=== PATIENT | female | born 1990 | race African-American/Black ===

== ENCOUNTER 2018-08-20 13:57 | Emergency (ER) | payer MEDICAID ==
[~2018-08-20] VITALS: Ht 160 cm; Wt 53.1 kg
[2018-08-20 15:25] VITALS: BP 155/99
== END 2018-08-20 16:23 | disposition home or self-care (01) ==
LOC: ER 14:05
DX: B35.4 Tinea corporis (principal); I10 Essential (primary) hypertension

== ENCOUNTER 2019-10-01 11:18 | Emergency (ER) | payer MEDICAID ==
[~2019-10-01] VITALS: Ht 157.5 cm; Wt 53.5 kg
[2019-10-01 12:35] LABS: Basophils # (auto) 0 10 ^3/uL (0-0.2); Basophils % (auto) 0.9 % (0.0-2.0); Eosinophils # (auto) 0 10 ^3/uL (0-0.8); Eosinophils % (auto) 1.1 % (0.0-7.0); Hematocrit 40.9 % (36.0-46.0); Hemoglobin 13.4 g/dL (12.2-16.2); Lymphocytes # (auto) 1.4 10 ^3/uL (0.4-5.4); Lymphocytes % (auto) 50.2 % (10.0-50.0); Mean Corpuscular Hemoglobin 31.3 pg (28.0-32.0); Mean Corpuscular Hgb Conc. 32.8 g/dL (32.0-36.0); Mean Corpuscular Volume 95.4 fL (80.0-100.0); Monocytes # (auto) 0.3 10 ^3/uL (0-1.3); Monocytes % (auto) 10.7 % (0.0-12.0); Neutrophils % (auto) 37.1 % (37.0-80.0); Nucleated Red Blood Cells % 0.1 %; Platelet Count (auto) 228 10^3/uL (140-450); Red Blood Cells 4.29 10^6/uL (4.0-5.20); Red Cell Distribution Width 13.4 % (11.8-14.3); White Blood Cell 2.8 10^3/uL (4.4-10.8)
[2019-10-01 13:50] VITALS: BP 153/93
== END 2019-10-01 13:53 | disposition home or self-care (01) ==
LOC: ER 11:18
DX: N93.9 Abnormal uterine and vaginal bleeding, unspecified (principal)
CPT/HCPCS: 36415; 84702; 85025

== ENCOUNTER 2020-08-01 18:29 | Inpatient (IN) | payer MEDICAID ==
[~2020-08-01] VITALS: Ht 165.1 cm; Wt 54.6 kg
[2020-08-01 19:12] LABS: Hematocrit 39.5 % (36.0-46.0); Hemoglobin 13.9 g/dL (12.2-16.2); Mean Corpuscular Hemoglobin 31.7 pg (28.0-32.0); Mean Corpuscular Hgb Conc. 35.1 g/dL (32.0-36.0); Mean Corpuscular Volume 90.2 fL (80.0-100.0); Red Blood Cells 4.38 10^6/uL (4.0-5.20); Red Cell Distribution Width 14.5 % (11.8-14.3); White Blood Cell 4.4 10^3/uL (4.4-10.8)
[2020-08-01 19:27] LABS: Basophils % (manual) 0 (0.0-2.0); Blast Cells 0; Eosinophils % (manual) 0 (0-7); Metamyelocytes % 0; Myelocytes % 0; Promyelocytes % 0; Reactive Lymphocytes 0
[2020-08-01 19:28] LABS: Albumin 4.5 g/dL (3.4-5.0); Anion Gap 7 (5-15); Blood Urea Nitrogen 9 mg/dL (7-18); Carbon Dioxide 28 mmol/L (21-32); Chloride 105 mmol/L (98-107); Glucose 100 mg/dL (74-106); Magnesium 2.1 mg/dL (1.6-2.6); Potassium 3.5 mmol/L (3.5-5.1); Sodium 140 mmol/L (136-145)
[2020-08-01 19:38] LABS: Alanine Aminotransferase 19 U/L (13-56); Alkaline Phosphatase 71 U/L (45-117); Aspartate Aminotransferase 15 U/L (15-37); BUN/Creatinine Ratio 11.8; Bilirubin, Total 0.5 mg/dL (0.2-1.0); GFR African American 115 mL/min; GFR Non-African American 95 mL/min; Total Protein 8.5 g/dL (6.4-8.2)
[2020-08-01 20:28] LABS: Urine Bacteria FEW /hpf (None Seen); Urine Blood Negative /uL (Negative); Urine Specific Gravity 1.004 (1.001-1.035); Urine WBC 3 /hpf (0 - 5)
[2020-08-01 20:34] LABS: Band Neutrophils % (manual) 2; Lymphocytes % (manual) 13 (10.0-50.0); Monocytes % (manual) 20 (0-12)
[2020-08-01] MEDS ORDERED: cloNIDine HCL 0.1 MG TAB PO ONE (20:45)
[2020-08-01] MEDS ORDERED: HYDROcodone-ACET 5/325MG TAB PO PRN (22:45)
[2020-08-01] MEDS ORDERED: MORPHINE SULFATE INJECTION 2 MG/ML SYRG IV PRN (22:45)
[2020-08-01] MEDS ORDERED: ONDANSETRON HCL 4 MG/2 ML VIAL IV PRN (22:45)
[2020-08-01] MEDS ORDERED: hydrALAZINE HCL 20 MG/ML VL IV PRN (22:45)
[2020-08-01] MEDS ORDERED: ACETAMINOPHEN 325 MG TAB PO PRN (22:45)
[2020-08-01] MEDS ORDERED: NITROGLYCERIN 0.4 MG SL TAB SL PRN (22:45)
[2020-08-01] MEDS ORDERED: DOCUSATE SOD 100 MG CAP PO PRN (22:45)
[2020-08-01 23:32] VITALS: BP 142/91
[2020-08-02] VITALS (8 sets, daily range): BP systolic 112–145; BP diastolic 77–95
[2020-08-02] MEDS ORDERED: AML5T PO (02:15)
[2020-08-02] MEDS ORDERED: HYDR25TA5 GT (02:16)
[2020-08-02] MEDS: SODIUM CHLOR 0.9% PF (SALINE LOCK) 10ML VIAL/SYR IV SCH ×3 (05:10→21:52)
[2020-08-02 05:50] LABS: Hematocrit 36.8 % (36.0-46.0); Hemoglobin 12.3 g/dL (12.2-16.2); Mean Corpuscular Hemoglobin 30.3 pg (28.0-32.0); Mean Corpuscular Hgb Conc. 33.5 g/dL (32.0-36.0); Mean Corpuscular Volume 90.4 fL (80.0-100.0); Red Blood Cells 4.07 10^6/uL (4.0-5.20); Red Cell Distribution Width 14.2 % (11.8-14.3); White Blood Cell 2.8 10^3/uL (4.4-10.8)
[2020-08-02] MEDS ORDERED: ALBUTEROL SULF HFA 90MCG INH 200DOSE IN SCH (06:00)
[2020-08-02] MEDS ORDERED: ALBUTEROL SULF HFA 90MCG INH 200DOSE IN PRN (06:00)
[2020-08-02 06:04] LABS: Albumin 3.9 g/dL (3.4-5.0); Calcium 8.4 mg/dL (8.5-10.1); Potassium 3.8 mmol/L (3.5-5.1)
[2020-08-02 06:08] LABS: Bilirubin, Total 0.6 mg/dL (0.2-1.0); Total Protein 7.4 g/dL (6.4-8.2)
[2020-08-02 07:01] LABS: Basophils % (manual) 0 (0.0-2.0); Blast Cells 0; Eosinophils % (manual) 0 (0-7); Metamyelocytes % 0; Myelocytes % 0; Promyelocytes % 0; Reactive Lymphocytes 0
[2020-08-02 10:00] LABS: Band Neutrophils % (manual) 3; Lymphocytes % (manual) 38 (10.0-50.0)
[2020-08-02 10:01] LABS: Monocytes % (manual) 30 (0-12)
[2020-08-02] MEDS: MULTIPLE VITAMIN TAB PO SCH (10:08)
[2020-08-02] MEDS: ZINC SULFATE 220mg CAP or TAB PO SCH (10:08)
[2020-08-02] MEDS: METOPROLOL TARTRATE 50 MG TAB PO SCH ×2 (10:08→21:52)
[2020-08-02] MEDS: CHOLECALCIFEROL (VITD3) 1,000UNIT=25mCg TAB PO SCH (10:09)
[2020-08-02] MEDS: FAMOTIDINE 20 MG TAB PO SCH ×2 (10:09→21:52)
[2020-08-02] MEDS: ENOXAPARIN SOD 40 MG/0.4 ML SYRINGE SC SCH (10:09)
[2020-08-02] MEDS: ASCORBIC ACID 500 MG TAB PO SCH ×2 (10:09→21:53)
[2020-08-02] MEDS: AZITHROMYCIN 500MG/ 250ML 250 ML IV SCH (14:20)
[2020-08-02] MEDS ORDERED: guaiFENesin-DM 100/10mg/5ml SYR PO PRN (20:30)
[2020-08-02] MEDS: NITROFURANTOIN 100 mg CAP PO SCH (21:52)
[2020-08-03 05:00] VITALS: BP 120/79
[2020-08-03] MEDS: SODIUM CHLOR 0.9% PF (SALINE LOCK) 10ML VIAL/SYR IV SCH ×2 (05:39→14:35)
[2020-08-03 08:00] VITALS: BP 135/92
[2020-08-03 09:00] VITALS: BP 135/92
[2020-08-03] MEDS ORDERED: amLODIPine BESYLATE 5 MG TAB PO SCH (10:00)
[2020-08-03] MEDS: ENOXAPARIN SOD 40 MG/0.4 ML SYRINGE SC SCH (10:00)
[2020-08-03] MEDS: AZITHROMYCIN 500MG/ 250ML 250 ML IV SCH (10:03)
[2020-08-03] MEDS: MULTIPLE VITAMIN TAB PO SCH (10:04)
[2020-08-03] MEDS: NITROFURANTOIN 100 mg CAP PO SCH (10:04)
[2020-08-03] MEDS: ZINC SULFATE 220mg CAP or TAB PO SCH (10:04)
[2020-08-03] MEDS: CHOLECALCIFEROL (VITD3) 1,000UNIT=25mCg TAB PO SCH (10:05)
[2020-08-03] MEDS: FAMOTIDINE 20 MG TAB PO SCH (10:05)
[2020-08-03] MEDS: ASCORBIC ACID 500 MG TAB PO SCH (10:05)
[2020-08-03] MEDS: METOPROLOL TARTRATE 50 MG TAB PO SCH (10:06)
[2020-08-03 13:00] VITALS: BP 121/75
[2020-08-03 17:00] VITALS: BP 122/76
[2020-08-03 17:36] VITALS: BP 122/76
== END 2020-08-03 18:05 | disposition home or self-care (01) | DRG 137 ==
LOC: ER 18:29 → TELE-EAST 22:53
PROVIDERS: ADMIT Nurse Practitioner Family; ATTEND Nurse Practitioner Family
DX: U07.1 COVID-19 (principal); J12.82 Pneumonia due to coronavirus disease 2019; I10 Essential (primary) hypertension; N39.0 Urinary tract infection, site not specified; Z82.49 Family history of ischemic heart disease and other diseases of the circulatory system; Z83.3 Family history of diabetes mellitus; E78.5 Hyperlipidemia, unspecified
CPT/HCPCS: 36415; 71045; 80053; 81001; 83735; 84443; 84484; 85007; 85027; 85379; 86141; 87426; 93005; 96365; 96372; 96375; G0378

== ENCOUNTER → 2022-03-17 09:59 | Emergency (ER) | payer MEDICAID ==
[~2022-03-17] VITALS: Ht 160 cm; Wt 55.4 kg
[~2022-03-17 09:59] MED LIST: AML5T PO; HYDR25TA5 GT; SODIUM CHLORIDE 0.9% 1,000 ML IV ONE; SODIUM CHLORIDE 0.9% 500 ML IVB ONE
[2022-03-17 11:32] LABS: Basophils # (auto) 0 10 ^3/uL (0-0.2); Basophils % (auto) 0.4 % (0.0-2.0); Eosinophils # (auto) 0 10 ^3/uL (0-0.8); Eosinophils % (auto) 0.1 % (0.0-7.0); Hematocrit 40.7 % (36.0-46.0); Hemoglobin 13.4 g/dL (12.2-16.2); Lymphocytes # (auto) 1.5 10 ^3/uL (0.4-5.4); Mean Corpuscular Hemoglobin 28.7 pg (28.0-32.0); Mean Corpuscular Volume 86.9 fL (80.0-100.0); Monocytes # (auto) 0.5 10 ^3/uL (0-1.3); Monocytes % (auto) 8.3 % (0.0-12.0); Neutrophils # (auto) 3.7 10 ^3/uL (1.6-8.6); Neutrophils % (auto) 64.2 % (37.0-80.0); Red Blood Cells 4.68 10^6/uL (4.0-5.20); Red Cell Distribution Width 14.9 % (11.8-14.3); White Blood Cell 5.7 10^3/uL (4.4-10.8)
[2022-03-17 11:46] LABS: Albumin 4.8 g/dL (3.4-5.0); Calcium 9.2 mg/dL (8.5-10.1); Potassium 3.7 mmol/L (3.5-5.1)
[2022-03-17 11:50] LABS: BUN/Creatinine Ratio 6.8; Bilirubin, Total 1.4 mg/dL (0.2-1.0); Total Protein 8.6 g/dL (6.4-8.2)
[2022-03-17 13:29] LABS: Urine Bacteria NONE SEEN /hpf (None Seen); Urine Blood Negative /uL (Negative); Urine Mucus FEW (None Seen); Urine Specific Gravity 1.014 (1.001-1.035); Urine WBC 1 /hpf (0 - 5)
[2022-03-17 16:03] VITALS: BP 152/80
== END | disposition home or self-care (01) ==
LOC: ER 09:59
DX: O00.90 Unspecified ectopic pregnancy without intrauterine pregnancy (principal); I10 Essential (primary) hypertension; Z79.899 Other long term (current) drug therapy; Z3A.00 Weeks of gestation of pregnancy not specified
CPT/HCPCS: 36415; 76801; 76817; 80053; 81001; 81025; 83735; 84702; 85025; 96360; 96361; 99284; J7030; J7040

== ENCOUNTER 2022-03-19 09:43 | Emergency (ER) | payer MEDICAID ==
[~2022-03-19] VITALS: Ht 160 cm; Wt 56.4 kg
[~2022-03-19 09:43] MED LIST changes: -SODIUM CHLORIDE 0.9% 1,000 ML IV ONE; -SODIUM CHLORIDE 0.9% 500 ML IVB ONE
[2022-03-19 11:41] VITALS: BP 140/91
== END 2022-03-19 12:20 | disposition home or self-care (01) ==
LOC: ER 09:43
DX: O02.81 Inappropriate change in quantitative human chorionic gonadotropin (hCG) in early pregnancy (principal); Z3A.01 Less than 8 weeks gestation of pregnancy
CPT/HCPCS: 36415; 84702

== ENCOUNTER 2022-03-21 07:46 | Emergency (ER) | payer MEDICAID ==
[~2022-03-21] VITALS: Ht 157.5 cm; Wt 54.0 kg
[2022-03-21 08:25] VITALS: BP 149/81
== END 2022-03-21 10:29 | disposition home or self-care (01) ==
LOC: ER 07:46
DX: O26.891 Other specified pregnancy related conditions, first trimester (principal); O16.1 Unspecified maternal hypertension, first trimester; Z3A.01 Less than 8 weeks gestation of pregnancy
CPT/HCPCS: 36415; 84702

== ENCOUNTER 2023-04-01 21:32 | Emergency (ER) | payer MEDICAID ==
[~2023-04-01] VITALS: Ht 160 cm; Wt 69.0 kg
[2023-04-01] MEDS ORDERED: hydroCHLOROthiazide 25 MG TAB PO ONE (22:30)
[2023-04-01] MEDS ORDERED: amLODIPine BESYLATE 5 MG TAB PO ONE (22:30)
[2023-04-01 22:50] LABS: Basophils # (auto) 0 10 ^3/uL (0-0.2); Eosinophils # (auto) 0 10 ^3/uL (0-0.8); Eosinophils % (auto) 0.5 % (0.0-7.0); Hematocrit 37.7 % (36.0-46.0); Hemoglobin 12.2 g/dL (12.2-16.2); Lymphocytes # (auto) 1.4 10 ^3/uL (0.4-5.4); Lymphocytes % (auto) 31.7 % (10.0-50.0); Mean Corpuscular Hemoglobin 27.8 pg (28.0-32.0); Mean Corpuscular Hgb Conc. 32.3 g/dL (32.0-36.0); Monocytes # (auto) 0.5 10 ^3/uL (0-1.3); Monocytes % (auto) 10.5 % (0.0-12.0); Neutrophils # (auto) 2.6 10 ^3/uL (1.6-8.6); Neutrophils % (auto) 56.3 % (37.0-80.0); Red Blood Cells 4.39 10^6/uL (4.0-5.20); Red Cell Distribution Width 15.6 % (11.8-14.3); White Blood Cell 4.5 10^3/uL (4.4-10.8)
[2023-04-01 23:00] LABS: Alkaline Phosphatase 85 U/L (46-116); Anion Gap 6 (5-15); Aspartate Aminotransferase 13 U/L (13-40); BUN/Creatinine Ratio 8.3 (10.0-20.0); Bilirubin, Total 1.1 mg/dL (0.2-1.0); Blood Urea Nitrogen 8 mg/dL (9-23); Calcium 9.2 mg/dL (8.7-10.4); Carbon Dioxide 25 mmol/L (20-30); Chloride 107 mmol/L (98-107); Glucose 99 mg/dL (74-106); Potassium 4.2 mmol/L (3.5-5.1); Sodium 138 mmol/L (136-145); Total Protein 7.8 g/dL (5.7-8.2)
[2023-04-01 23:01] LABS: INR 1.01 (0.9-1.15); Prothrombin Time 10.6 sec (9.3-11.8)
[2023-04-01 23:05] LABS: Urine Bacteria NONE SEEN /hpf (None Seen); Urine Blood Negative /uL (Negative); Urine Clarity HAZY (Clear); Urine Color Yellow (Yellow); Urine Mucus FEW (None Seen); Urine Protein, UAD TRACE (Negative); Urine Specific Gravity 1.027 (1.001-1.035); Urine Urobilinogen Normal (Negative); Urine WBC 3 /hpf (0 - 5)
[2023-04-01 23:09] LABS: Alanine Aminotransferase < 9 U/L (7-40)
[2023-04-01] MEDS ORDERED: LORazepam 0.5 MG TAB PO ONE (23:30)
[2023-04-01] MEDS ORDERED: ONDANSETRON ODT 4 MG TAB PO ONE (23:30)
[2023-04-01 23:43] LABS: Blood Alcohol < 3.0 mg/dL (<10)
[2023-04-01 23:48] LABS: Amphetamine Screen, Urine Neg (NEGATIVE); Barbiturate Scree,Urine Neg (NEGATIVE); Benzodiazephine Screen, Urine Neg (NEGATIVE); Cannabinoid Screen, Urine Neg (NEGATIVE); Cocaine Screen, Urine Neg (NEGATIVE); Opiate Scree,Urine Neg (NEGATIVE); Phencyclidine Screen, Urine Neg (NEGATIVE)
[2023-04-02] MEDS ORDERED: hydrALAZINE HCL 25 MG TAB PO ONE (01:00)
[2023-04-02] MEDS ORDERED: hydroCHLOROthiazide 25 MG TAB PO ONE (01:00)
[2023-04-02] MEDS ORDERED: LABETALOL HCL 5 MG/ML 4ML SYRINGE IV ONE (04:30)
[2023-04-02] MEDS ORDERED: hydrALAZINE HCL 20 MG/ML VL IV ONE (04:30)
[2023-04-02] MEDS ORDERED: cloNIDine HCL 0.1 MG TAB PO ONE (06:15)
[2023-04-02] MEDS ORDERED: POTA1TAB4 PO (06:20)
[2023-04-02] MEDS ORDERED: [UNRECOGNIZED DRUG - CODE] PO (06:20)
[2023-04-02] MEDS ORDERED: AMLO1TAB23 PO (06:20)
[2023-04-02 07:20] VITALS: PULSE 99; RESP 13; O2SAT 99
[2023-04-02] MEDS ORDERED: ACETAMINOPHEN 500 MG TAB PO ONE (08:30)
[2023-04-02 09:32] VITALS: BP 126/75; PULSE 97; RESP 16; TEMP 98.3; O2SAT 100
== END 2023-04-02 09:55 | disposition home or self-care (01) ==
LOC: ER 21:32
DX: I10 Essential (primary) hypertension (principal); F41.9 Anxiety disorder, unspecified; Z79.899 Other long term (current) drug therapy
CPT/HCPCS: 36415; 71045; 80053; 80307; 80320; 81001; 83735; 84484; 85025; 85379; 85610; 85730; 93005; 96374; 99285; J0360

== ENCOUNTER 2023-06-06 18:49 | Emergency (ER) | payer MEDICAID ==
[~2023-06-06] VITALS: Ht 160 cm; Wt 66.0 kg
[~2023-06-06 18:49] MED LIST changes: +AMLO1TAB23 PO; +POTA1TAB4 PO; +[UNRECOGNIZED DRUG - CODE] PO
[2023-06-06 20:05] LABS: Basophils # (auto) 0.1 10 ^3/uL (0-0.2); Basophils % (auto) 0.9 % (0.0-2.0); Eosinophils # (auto) 0 10 ^3/uL (0-0.8); Eosinophils % (auto) 0.3 % (0.0-7.0); Hematocrit 39.1 % (36.0-46.0); Hemoglobin 12.8 g/dL (12.2-16.2); Lymphocytes # (auto) 1.8 10 ^3/uL (0.4-5.4); Lymphocytes % (auto) 32.7 % (10.0-50.0); Mean Corpuscular Hemoglobin 28.3 pg (28.0-32.0); Mean Corpuscular Hgb Conc. 32.7 g/dL (32.0-36.0); Mean Corpuscular Volume 86.5 fL (80.0-100.0); Monocytes # (auto) 0.6 10 ^3/uL (0-1.3); Monocytes % (auto) 11.4 % (0.0-12.0); Neutrophils % (auto) 54.7 % (37.0-80.0); Nucleated Red Blood Cells % 0.1 %; Red Blood Cells 4.52 10^6/uL (4.0-5.20); Red Cell Distribution Width 17.3 % (11.8-14.3); White Blood Cell 5.5 10^3/uL (4.4-10.8)
[2023-06-06 20:16] LABS: Chloride 101 mmol/L (98-107); Potassium 3.3 mmol/L (3.5-5.1); Sodium 136 mmol/L (136-145)
[2023-06-06 20:17] LABS: Anion Gap 8 (5-15); Carbon Dioxide 27 mmol/L (20-30)
[2023-06-06 20:18] LABS: Calcium 9.7 mg/dL (8.5-10.1)
[2023-06-06 20:22] LABS: BUN/Creatinine Ratio 19.1 (10.0-20.0); Blood Urea Nitrogen 17 mg/dL (9-23); Glucose 98 mg/dL (74-106)
[2023-06-06 21:24] LABS: Urine Bacteria NONE SEEN /hpf (None Seen); Urine Blood Negative /uL (Negative); Urine Clarity Clear (Clear); Urine Color Yellow (Yellow); Urine Mucus FEW (None Seen); Urine Protein, UAD Negative (Negative); Urine Specific Gravity 1.022 (1.001-1.035); Urine Urobilinogen Normal (Negative); Urine WBC 1 /hpf (0 - 5); Urine pH 5.5 (5.0-8.0)
[2023-06-06] MEDS ORDERED: FAMOTIDINE (10MG/ML) 2ML VL IV ONE (23:00)
[2023-06-06] MEDS ORDERED: SODIUM CHLORIDE 0.9% 1,000 ML IVB ONE (23:00)
[2023-06-06] MEDS ORDERED: ACETAMINOPHEN 325 MG TAB PO ONE (23:00)
[2023-06-06] MEDS ORDERED: ONDANSETRON HCL 4 MG/2 ML VIAL IV ONE (23:00)
[2023-06-06 23:46] LABS: Albumin 5.3 g/dL (3.2-4.8); Alkaline Phosphatase 81 U/L (46-116); Anion Gap 8 (5-15); Aspartate Aminotransferase 14 U/L (13-40); BUN/Creatinine Ratio 14.3 (10.0-20.0); Bilirubin, Total 1.1 mg/dL (0.2-1.0); Blood Urea Nitrogen 11 mg/dL (9-23); Calcium 9.4 mg/dL (8.7-10.4); Carbon Dioxide 25 mmol/L (20-30); Chloride 102 mmol/L (98-107); Glucose 91 mg/dL (74-106); Magnesium 2.1 mg/dL (1.6-2.6); Potassium 3.4 mmol/L (3.5-5.1); Sodium 135 mmol/L (136-145); Total Protein 8.5 g/dL (5.7-8.2)
[2023-06-07 00:12] LABS: Alanine Aminotransferase < 9 U/L (7-40)
[2023-06-07] MEDS ORDERED: ACET-1304 PO (01:00)
[2023-06-07] MEDS ORDERED: HYDR25CA PO (01:00)
[2023-06-07] MEDS ORDERED: FAMO20TA10 PO (01:00)
[2023-06-07 01:14] VITALS: BP 156/85; PULSE 106; RESP 16; O2SAT 99
== END 2023-06-07 01:20 | disposition home or self-care (01) ==
LOC: ER 18:49
DX: O26.891 Other specified pregnancy related conditions, first trimester (principal); R10.2 Pelvic and perineal pain; R06.02 Shortness of breath; Z3A.01 Less than 8 weeks gestation of pregnancy; Z79.899 Other long term (current) drug therapy
CPT/HCPCS: 36415; 80048; 80053; 81001; 83735; 83880; 84484; 84702; 85025; 85379; 93005; 93970

== ENCOUNTER 2023-07-17 16:57 | Emergency (ER) | payer MEDICAID ==
[~2023-07-17] VITALS: Ht 160 cm; Wt 66.5 kg
[~2023-07-17 16:57] MED LIST changes: +ACET-1304 PO; +FAMO20TA10 PO; +HYDR25CA PO
[2023-07-17 17:15] VITALS: RESP 15; TEMP 98.4; O2SAT 100
[2023-07-17 17:27] VITALS: BP 173/112
[2023-07-17 17:37] VITALS: PULSE 92
[2023-07-17] MEDS: cloNIDine HCL 0.1 MG TAB PO ONE (17:55)
== END 2023-07-17 18:10 | disposition home or self-care (01) ==
LOC: ER 16:57
DX: I16.0 Hypertensive urgency (principal); I10 Essential (primary) hypertension; R51.9 Headache, unspecified
CPT/HCPCS: 93005

== ENCOUNTER 2024-12-01 13:44 | Emergency (ER) | payer MEDICAID, OTHER ==
[~2024-12-01] VITALS: Ht 160 cm; Wt 64.2 kg
--- NOTE | 2024-12-01 16:28 | ED.PDOC ---
Musculoskeletal HPI Comments A 34 year-old female presents to the ED with a chief complaint of right hand pain as of X2 days ago. 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 Patient additionally reports pain as constant, with increased pain with ROM. Patient has no further complaints at this time and otherwise denies further associated symptoms of chest pain, migraine, dizziness, fever, or chills. Chief Complaint: Upper Extremity Time Seen by MD: 16:05 Primary Care Provider: MADISON Angeles Notes: Nurses Notes, Medications, Allergies Allergies: Coded Allergies: NO KNOWN ALLERGIES (Unverified , 08/01/20) Home Meds Active Scripts Acetaminophen (Tylenol Extra Strength) 500 Mg Tab, 500 MG PO Q6HR, #14 TAB Prov:VALERI HAUSER MD 06/07/23 Famotidine (PEPCID TABLET) 20 Mg Tb, 1 TAB PO BID, #30 TAB 5 Refills Prov:VALERI HAUSER MD 06/07/23 Hydroxyzine Pamoate (Vistaril) 25 Mg Cap, 1 CAP PO TID, #30 CAP Prov:VALERI HAUSER MD 06/07/23 Potassium Chloride (K-Tab) 20 Meq Tab, 20 MEQ PO DAILY, #30 TAB Prov:VALERI HAUSER MD 04/02/23 Hydrochlorothiazide W/Triamter (Hctz/Triamterene) 1 Tab Tab, 1 TAB PO BIDD, #90 TAB Prov:VALERI HAUSER MD 04/02/23 Amlodipine Besylate (Amlodipine Besylate) 10 Mg Tab, 1 TAB PO DAILY, #90 TAB 1 Refill Prov:VALERI HAUSER MD 04/02/23 Reported Medications Hctz (Hydrochlorothiazide) 25 Mg Tab, 12.5 MG GT, TAB 08/02/20 Amlodipine Besylate (NORVASC TABLET) 5 Mg Tb, 1 TAB PO DAILY, #30 TAB 5 Refills 08/02/20 Information Source: Patient Mode of Arrival: Ambulatory Location: Right Extremity Location: Arm, Hand Timing: Days (2) Prehospital treatment: None Severity: Moderate Able to Move Extremity: Yes Bear Weight: Limited Pain: Moderate Hand Dominance: Right Onset of Symptoms: Spontaneous Symptoms: Pain Associated signs and symptoms: Arm pain (right ) Past Medical History PAST MEDICAL HISTORY: HTN Surgical History: Denies all surgeries DRIER TENDER NAPHTHALENE History: No Pertinent DRIER TENDER NAPHTHALENE History Family History Family History: Family hx of HTN Social History Smoker: Non-Smoker Alcohol: Occasionally Drugs: Denies Drug Use Lives In: Home Constitutional: denies: chills, diaphoresis, fatigue, fever, malaise, sweats, weakness, others EENTM: denies: blurred vision, double vision, ear bleeding, ear discharge, ear drainage, ear pain, ear ringing, eye pain, eye redness, hearing loss, mouth pain, mouth swelling, nasal discharge, nose bleeding, nose congestion, nose pain , photophobia, tearing, throat pain, throat swelling, voice changes, others Respiratory: denies: cough, hemoptysis, orthopnea, SOB at rest, shortness of breath, SOB with excertion, stridor, wheezing, others Cardiovascular: denies: chest pain, dizzy spells, diaphoresis, Dyspnea on exertion, edema, irregular heart beat, left arm pain, lightheadedness, palpitations, PND, syncope, others Gastrointestinal: denies: abdomen distended, abdominal pain, blood streaked bowels, constipated, diarrhea, dysphagia, difficulty swallowing, hematemesis, melena, nausea, poor appetite, poor fluid intake, rectal bleeding, rectal pain, vomiting, others Genitourinary: denies: abnormal vagina bleeding, burning, dyspareunia, dysuria, flank pain, frequency, hematuria, incontinence, pain, , vagina discharge, urgency, others Neurological: denies: dizziness, fainting, headache, left sided numbness, left sided weakness, numbness, paresthesia, pre-existing deficit, right sided numbness, right sided weakness, seizure, speech problems, tingling, tremors, weakness, others Musculoskeletal: reports: others (Right Hand Pain ); denies: back pain, gout, joint pain, joint swelling, muscle pain, muscle stiffness, neck pain Integumetry: denies: bruises, change in color, change in hair/nails, dryness, laceration, lesions, lumps, rash, wounds, others Allergic/Immunocompromised: denies: Difficulty Healing, Frequent Infections, Hives, Itching, others Hematologic/Lymphatic: denies: anemia, blood clots, easy bleeding, easy bruising, swollen glands, others Endocrine: denies: excessive hunger, excessive sweating, excessive thirst, excessive urination, flushing, intolerance to cold, intolerance to heat, unexplained weight gain, unexplained weight loss, others Psychiatric: denies: anxiety, bipolar disorder, depression, hopeless, panic disorder, schizophrenia, sleepless, suicidal, others All Other Systems: Reviewed and Negative Physical Exam General Appearance: Mild Distress HEENT: Normal ENT Inspection, PERRL/EOMI Neck: Full Range of Motion, Non-Tender, Normal, Normal Inspection Respiratory: Chest Non-Tender, Lungs Clear, No Accessory Muscle Use, No Respiratory Distress, Normal Breath Sounds Cardiovascular: No Edema, No JVD, No Murmur, No Gallop, Normal Peripheral Pulses, Regular Rate/Rhythm Breast Exam: Deferred Gastrointestinal: No Organomegaly, Non Tender, No Pulsatile Mass, Normal Bowel Sounds, Soft Genitalia: Deferred Pelvic: Deferred Rectal: Deferred Extremities: No calf tenderness, Normal capillary refill, Normal inspection, Normal range of motion, Non-tender, No pedal edema, Tender Musculoskeletal : Location: Right Extremity Location: Wrist Apperance: Limited ROM, Tenderness: Mild Neurologic: Alert, show dog trainer II-XII nml as Tested, No Motor Deficits, Normal Affect, Normal Mood, No Sensory Deficits Cerebellar Function: Normal Reflexes: Normal Skin: Dry, Normal Color, Warm Peripheral Pulses: 0 carotid (R), 0 carotid (L) Lymphatic: No Adenopathy Was a procedure done? Was a procedure done?: No Differential Diagnosis EXT Differential Diagnosis: Fracture, Sprain, Contusion, Strain X-Ray, Labs, Meds, VS Vital Signs Date Time Temp Pulse Resp B/P (MAP) Pulse Ox O2 Delivery O2 Flow Rate FiO2 12/01/24 14:02 98.0 88 20 155/95 (115) 96 98.0 [place] [address] Ph: [phone] DIAGNOSTIC IMAGING Diagnostic Imaging Report : [id number] Signed PATIENT: EMILIANA CHOUDHARYACCT: [id number] UNIT: [id number] : 1990 LOC: ER ROOM / BED: / AGE / SEX: 34 / F ADM STATUS: REG ER SERVICE [id number] ORDERING PHYSICIAN: ROGELIO WU MD PROCEDURE(s): RWRI - R WRIST 3+ VIEW XRAY REASON: RIGHT WRIST PAINFUL FOR PAST TWO DAYS ORDER NUMBER(s): [id number], ACCESSION NUMBER(s): [id number] CLINICAL INDICATION: RIGHT WRIST PAINFUL FOR PAST TWO DAYS TECHNIQUE: 3 radiographic views of the right wrist were obtained. Comparison: None FINDINGS/IMPRESSION: There are no fractures seen. Bony alignment appears normal. There are no abnormal soft tissue calcifications. X-Ray, Labs, Meds, VS Comment Course in the emergency department event full X-ray of the wrist is normal Patient will be having wrist splint Time of 1ST Reevaluation: 16:51 Reevaluation 1ST: Unchanged Time of 2ND Reevaluation: 17:45 Reevaluation 2ND: Improved Consultation: PCP Patient Education/Counseling: Diagnosis, Treatment, Prognosis, Need For Follow Up Family Education/Counseling: Diagnosis, Treatment, Prognosis, Need For Follow Up, No Family Present Departure 1 Departure Time of Disposition: 17:46 Impression: Primary Impression: Sprain and strain of right wrist Disposition: 01 HOME / SELF CARE / HOMELESS Condition: Stable Additional Instructions: Use local heat and follow up with your PCP for industrial Dr. e-Prescriptions Naproxen (Naproxen) 375 Mg Tab 375 MG PO TID for 10 Days, #30 TAB Prov: ROGELIO WU MD 12/01/24 Discharged With: Self Critical Care Note Critical Care Time?: No Stability Stability form required: No Heart Score Heart Score: Heart Score Response (Comments) Value History N/A 0 EKG N/A 0 Age N/A 0 Risk Factors N/A 0 Troponin N/A 0 Total 0 I personally scribed for ROGELIO WU MD ([email or web address]) on 12/01/24 at 16:28. Electronically submitted by Penny Arceo ([employer]). I personally scribed for ROGELIO WU MD ([email or web address]) on 12/01/24 at 17:03. Electronically submitted by Penny Arceo ([employer]). ROGELIO WU MD Dec 01, 2024 16:28
--- NOTE | 2024-12-01 17:01 | DVH ---
CLINICAL INDICATION: RIGHT WRIST PAINFUL FOR PAST TWO DAYS TECHNIQUE: 3 radiographic views of the right wrist were obtained. Comparison: None FINDINGS/IMPRESSION: There are no fractures seen. Bony alignment appears normal. There are no abnormal soft tissue calcifications.
[2024-12-01] MEDS ORDERED: NAPR-957 PO (17:48)
[2024-12-01] MEDS ORDERED: ACET-6 PO (17:49)
[2024-12-01 19:16] VITALS: BP 154/91; PULSE 80; RESP 18; TEMP 97.6; O2SAT 99
== END 2024-12-01 19:21 | disposition home or self-care (01) ==
LOC: ER 13:44
DX: S66.811A Strain of other specified muscles, fascia and tendons at wrist and hand level, right hand, initial encounter (principal); I10 Essential (primary) hypertension; Z79.899 Other long term (current) drug therapy; X58.XXXA Exposure to other specified factors, initial encounter; Y93.89 Activity, other specified; Y92.59 Other trade areas as the place of occurrence of the external cause; Y99.8 Other external cause status
CPT/HCPCS: 29125; 73110

== ENCOUNTER 2025-05-06 10:48 | Emergency (ER) | payer MEDICAID ==
[~2025-05-06] VITALS: Ht 160 cm; Wt 67.8 kg
[~2025-05-06 10:48] MED LIST changes: +ACET-6 PO; +NAPR-957 PO
--- NOTE | 2025-05-06 13:55 | ED.PDOC ---
HPI Comments The patient with a history of hypertension since 2013 presents with headache that began 1 day before this visit, persisting all day and continuing into today. The headache is described as a sensation of pressure or a "veil" upon waking, with intermittent waves of disorientation and a sense of being "lost," symptoms the patient has not experienced before. The patient also reports brief periods of feeling refreshed between these episodes. There is a history of fluctuating blood pressure, particularly since delivering a baby in June of this year. The patient ran out of antihypertensive medications after taking the last dose 1 day before this visit. Blood pressure was measured at work as 188/98 mmHg and 187/96 mmHg 1 day before this visit, and at home as 173/102 mmHg and 167/108 mmHg on the day of this visit. No clear alleviating or aggravating fac tors were discussed. The patients medication regimen includes nifedipine 30 mg and hydrochlorothiazide 25 mg daily, but the patient has not taken either on the day of this visit due to running out of medication. There is no mention of medication allergies. The patient works at [employer] with physically active days but has not been exercising as regularly as in the past. Salt intake is consciously limited. The patient had normal blood pressure during the first but developed hypertension during labor. The last eye exam was approximately 1 year before this visit. No other relevant family history or social history was provided. Chief Complaint: High Blood Pressure Time Seen by MD: 13:00 Primary Care Provider: MADISON Angeles Notes: Nurses Notes, Medications, Allergies Allergies: Coded Allergies: NO KNOWN ALLERGIES (Unverified , 08/01/20) Home Meds Active Scripts Nifedipine (Nifedipine ER) 30 Mg Tab, 30 MG PO DAILY for 30 Days, #30 TAB 0 Refills Prov:PRECIOUS MARTIN NP 05/06/25 Hctz (Hydrochlorothiazide) 25 Mg Tab, 25 MG PO DAILY, #30 TAB 0 Refills Prov:PRECIOUS MARTIN NP 05/06/25 Acetaminophen (Acetaminophen Extra Stren) 500 Mg Tab, 500 MG PO TID for 10 Days, #30 TAB Prov:ROGELIO WU MD 12/01/24 Naproxen (Naproxen) 375 Mg Tab, 375 MG PO TID for 10 Days, #30 TAB Prov:ROGELIO WU MD 12/01/24 Acetaminophen (Tylenol Extra Strength) 500 Mg Tab, 500 MG PO Q6HR, #14 TAB Prov:VALERI HAUSER MD 06/07/23 Famotidine (PEPCID TABLET) 20 Mg Tb, 1 TAB PO BID, #30 TAB 5 Refills Prov:VALERI HAUSER MD 06/07/23 Hydroxyzine Pamoate (Vistaril) 25 Mg Cap, 1 CAP PO TID, #30 CAP Prov:VALERI HAUSER MD 06/07/23 Potassium Chloride (K-Tab) 20 Meq Tab, 20 MEQ PO DAILY, #30 TAB Prov:VALERI HAUSER MD 04/02/23 Hydrochlorothiazide W/Triamter (Hctz/Triamterene) 1 Tab Tab, 1 TAB PO BIDD, #90 TAB Prov:VALERI HAUSER MD 04/02/23 Amlodipine Besylate (Amlodipine Besylate) 10 Mg Tab, 1 TAB PO DAILY, #90 TAB 1 Refill Prov:VALERI HAUSER MD 04/02/23 Reported Medications Amlodipine Besylate (NORVASC TABLET) 5 Mg Tb, 1 TAB PO DAILY, #30 TAB 5 Refills 08/02/20 Information Source: Patient Mode of Arrival: Ambulatory Severity: Moderate Duration: Since onset Prehospital treatment: None Onset: At Rest Cardiac Risk Factors: HTN PE Risk Factors: None History of: None Associated Signs and Symptoms: None Past Medical History PAST MEDICAL HISTORY: HTN Surgical History: Denies all surgeries PATTERNMAKER PRESSURE CAST History: No Pertinent PATTERNMAKER PRESSURE CAST History Family History Family History: Reviewed,noncontributory to illness, Unknown, Family hx of HTN Social History Smoker: Non-Smoker Alcohol: Occasionally Drugs: Denies Drug Use Lives In: Home Constitutional: denies: chills, diaphoresis, fatigue, fever, malaise, sweats, weakness, others EENTM: denies: blurred vision, double vision, ear bleeding, ear discharge, ear drainage, ear pain, ear ringing, eye pain, eye redness, hearing loss, mouth pain, mouth swelling, nasal discharge, nose bleeding, nose congestion, nose pain, photophobia, tearing, throat pain, throat swelling, voice changes, others Respiratory: denies: cough, hemoptysis, orthopnea, SOB at rest, shortness of breath, SOB with excertion, stridor, wheezing, others Cardiovascular: denies: chest pain, dizzy spells, diaphoresis, Dyspnea on exertion, edema, irregular heart beat, left arm pain, lightheadedness, palpitations, PND, syncope, others Gastrointestinal: denies: abdomen distended, abdominal pain, blood streaked bowels, constipated, diarrhea, dysphagia, difficulty swallowing, hematemesis, melena, nausea, poor appetite, poor fluid intake, rectal bleeding, rectal pain, vomiting, others Genitourinary: denies: abnormal vagina bleeding, burning, dyspareunia, dysuria, flank pain, frequency, hematuria, incontinence, pain, , vagina discharge, urgency, others Neurological: reports: headache; denies: dizziness, fainting, left sided numbness, left sided weakness, numbness, paresthesia, pre-existing deficit, right sided numbness, right sided weakness, seizure, speech problems, tingling, tremors, weakness, others Musculoskeletal: denies: back pain, gout, joint pain, joint swelling, muscle pain, muscle stiffness, neck pain, others Integumetry: denies: bruises, change in color, change in hair/nails, dryness, laceration, lesions, lumps, rash, wounds, others Allergic/Immunocompromised: denies: Difficulty Healing, Frequent Infections, Hives, Itching, others Hematologic/Lymphatic: denies: anemia, blood clots, easy bleeding, easy bruising, swollen glands, others Endocrine: denies: excessive hunger, excessive sweating, excessive thirst, excessive urination, flushing, intolerance to cold, intolerance to heat, unexplained weight gain, unexplained weight loss, others Psychiatric: denies: anxiety, bipolar disorder, depression, hopeless, panic disorder, schizophrenia, sleepless, suicidal, others All Other Systems: Reviewed and Negative Physical Exam General Appearance: No Apparent Distress, Normal HEENT: Normal ENT Inspection, Pharynx Normal, TMs Normal Neck: Full Range of Motion, Non-Tender, Normal, Normal Inspection Respiratory: Chest Non-Tender, Lungs Clear, No Accessory Muscle Use, No Respiratory Distress, Normal Breath Sounds Cardiovascular: No Edema, No JVD, No Murmur, No Gallop, Normal Peripheral Pulses, Regular Rate/Rhythm Breast Exam: Deferred Gastrointestinal: No Organomegaly, Non Tender, No Pulsatile Mass, Normal Bowel Sounds, Soft Genitalia: Deferred Pelvic: Deferred Rectal: Deferred Extremities: No calf tenderness, Normal capillary refill, Normal inspection, Normal range of motion, Non-tender, No pedal edema Musculoskeletal : Apperance: Normal Neurologic: Alert, supervisor glycerin II-XII nml as Tested, No Motor Deficits, Normal Affect, Normal Mood, No Sensory Deficits Cerebellar Function: Normal Reflexes: Normal Skin: Dry, Normal Color, Warm Lymphatic: No Adenopathy Was a procedure done? Was a procedure done?: No CP Differential Dx Differential Diagnosis: Other X-Ray, Labs, Meds, VS Vital Signs Date Time Temp Pulse Resp B/P (MAP) Pulse Ox O2 Delivery O2 Flow Rate FiO2 05/06/25 14:51 99 16 99 Room Air 05/06/25 14:51 98.7 99 16 137/91 (106) 99 98.7 05/06/25 14:50 137/91 05/06/25 13:20 165/123 05/06/25 13:04 80 20 198/123 (148) 98 05/06/25 10:49 98.2 91 15 187/109 100 98.2 Current Medications Medications (Trade) Dose Ordered Sig/Mathew Route Start Time Stop Time Status Last Admin Clonidine HCl (Catapres Tablet) 0.2 mg ONCE ONCE PO 05/06/25 13:15 05/06/25 13:16 DC 05/06/25 13:20 X-Ray, Labs, Meds, VS Comment Patient arrives alert and oriented, ABC's intact, afebrile, vital signs stable, saturating well in room air This is a patient with longstanding hypertension, nonadherence due to medication supply issues, and recent onset of persistent headache with episodic disorientation, in the setting of markedly elevated blood pressure readings. Chronic hypertension with poor control, currently off antihypertensive medications due to running out 1 day before this visit. Recent blood pressure measurements are severely elevated. There is concern for hypertensive urgency given the presence of persistent headache and neurologic symptoms, though no focal neurologic deficits were identified on examination. -Clonidine x 1 -Refill for nifedipine and hydrochlorothiazide -Encourage patient to resume medications as soon as possible -Continue referral to cardiology for ongoing management Follow-up/Disposition: Patient to have blood pressure rechecked in clinic and resume antihypertensive therapy as soon as possible. Instructed to monitor for worsening headache, vision changes, weakness, or confusion, and to seek immediate care if these develop. Additional MDM Review of External, Non-ED records: External records reviewed. Discussion with independent historian (EMS, family) history obtained from the patient/parents (if applicable) at bedside Chronic conditions affecting care: None Social determinants of health affecting care: None Consideration of admission (observation or admission): I considered escalation of care to admission for this patient, however given the reassuring workup, the patient is safe for outpatient management. Discussion with the Radiology: No Tests considered but not performed: Prescription medication considered but not given: 12 lead EKG interpretation: Time of 1ST Reevaluation: 13:30 Reevaluation 1ST: Unchanged Patient Education/Counseling: Diagnosis, Treatment, Prognosis Family Education/Counseling: No Family Present SEPSIS Sepsis Screen Date sepsis recognized/suspect: May 06, 2025 Time Sepsis recognized/suspect: 1052 Recent Procedure: No On Antibiotic Therapy: No Respiratory Rate >20: No Heart Rate >90: No Temp<36 C (96.8 F) or >38.3 C: No SBP <90 or MAP <65 mmHG: No New Acute Mental Status Change: No Is the patient on CPAP, BIPAP,: No Vital Signs Date Time Temp Pulse Resp B/P (MAP) Pulse Ox O2 Delivery O2 Flow Rate FiO2 05/06/25 14:51 99 16 99 Room Air 05/06/25 14:51 98.7 99 16 137/91 (106) 99 98.7 05/06/25 14:50 137/91 05/06/25 13:20 165/123 05/06/25 13:04 80 20 198/123 (148) 98 05/06/25 10:49 98.2 91 15 187/109 100 98.2 Departure 1 Departure Time of Disposition: 14:54 Impression: Primary Impression: HTN (hypertension) Qualified Codes: I10 - Essential (primary) hypertension Disposition: HOME / SELF CARE / HOMELESS Condition: Stable Additional Instructions: Discharge Note: Continue on your medications. Do not drive when taking narcotics. Drink plenty of fluids. Follow up with your primary Dr. Take your prescriptions as ordered. If your condition becomes worse call and follow up with your primary Dr. for instructions or return to the ER if needed. Thank you for visiting [facility]. e-Prescriptions Nifedipine (Nifedipine ER) 30 Mg Tab 30 MG PO DAILY for 30 Days, #30 TAB 0 Refills Prov: PRECIOUS MARTIN NP 05/06/25 Hctz (Hydrochlorothiazide) 25 Mg Tab 25 MG PO DAILY, #30 TAB 0 Refills Prov: PRECIOUS MARTIN NP 05/06/25 Critical Care Note Critical Care Time?: No Stability Stability form required: No Heart Score Heart Score: Heart Score Response (Comments) Value History N/A 0 EKG N/A 0 Age N/A 0 Risk Factors N/A 0 Troponin N/A 0 Total 0 I personally scribed for PRECIOUS MARTIN NP ([email or web address]) on 05/06/25 at 13:55. Electronically submitted by Kj Cheek ([email or web address]). I personally scribed for PRECIOUS MARTIN NP ([email or web address]) on 05/06/25 at 14:45. Electronically submitted by Kj Cheek ([email or web address]). PRECIOUS MARTIN NP May 06, 2025 13:55
[2025-05-06 14:51] VITALS: BP 137/91; PULSE 99; RESP 16; TEMP 98.7; O2SAT 99
[2025-05-06] MEDS ORDERED: NIFE1TAB36 PO (14:57)
[2025-05-06] MEDS ORDERED: HYDR25TA5 PO (14:57)
== END 2025-05-06 15:01 | disposition home or self-care (01) ==
LOC: ER 10:48
DX: I10 Essential (primary) hypertension (principal); F10.90 Alcohol use, unspecified, uncomplicated; Z79.899 Other long term (current) drug therapy; Z79.1 Long term (current) use of non-steroidal anti-inflammatories (NSAID)